=== PATIENT | female | born 1955 | race Caucasian/White ===

== ENCOUNTER 2017-04-30 08:29 | Day surgery (SDC) | payer OTHER ==
[~2017-04-30] VITALS: Ht 149.9 cm; Wt 96.2 kg
[2017-04-30] MEDS ORDERED: SIMETHICONE 40 MG/0.6 ML ML ONE (09:05)
[2017-04-30] MEDS ORDERED: fentaNYL CITRATE/PF 100 MCG/2 ML AMP ONE ×2 (09:05→09:45)
[2017-04-30] MEDS: MIDAZOLAM HCL 5 MG/5 ML VIAL ONE ×2 (10:31→10:33)
[2017-04-30 11:40] VITALS: BP_SYST 152
== END 2017-04-30 11:38 | disposition home or self-care (01) ==
LOC: SDS 08:29
PROVIDERS: ATTEND Internal Medicine
DX: K29.70 Gastritis, unspecified, without bleeding (principal); E11.9 Type 2 diabetes mellitus without complications; I10 Essential (primary) hypertension; J44.9 Chronic obstructive pulmonary disease, unspecified; J45.909 Unspecified asthma, uncomplicated; E66.9 Obesity, unspecified; I63.9 Cerebral infarction, unspecified; M19.90 Unspecified osteoarthritis, unspecified site; Z68.41 Body mass index [BMI] 40.0-44.9, adult
CPT/HCPCS: 36415; 43239; 82962; 87081; 88305; 88312; 88313; J2250; J3010